=== PATIENT | male | born 1930 | race Caucasian/White ===

== ENCOUNTER 2019-02-20 11:02 | Observation (INO) | payer MEDICARE ==
[2019-02-17 12:15] LABS: BASOPHILS % (AUTO) 0.3 % (0-1); EOSINOPHILS # (AUTO) 0.1 X10'3 (0-0.9); EOSINOPHILS % (AUTO) 1.8 % (0-6); LYMPHOCYTES # (AUTO) 1.6 X10'3 (1.1-4.8); LYMPHOCYTES % (AUTO) 25.8 % (21-51); MEAN CORPUSCULAR HEMOGLOBIN 32.1 PG (27.0-31.0); MEAN CORPUSCULAR HGB CONC 33.3 g/dL (33.0-36.5); MEAN CORPUSCULAR VOLUME 96.6 FL (78-98); MEAN PLATELET VOLUME 9.6 FL (7.4-10.4); MONOCYTES # (AUTO) 0.6 X10'3 (0-0.9); MONOCYTES % (AUTO) 10.1 % (2-12); NEUTROPHILS # (AUTO) 3.8 X10'3 (1.8-7.7); PRE OP HEMATOCRIT 45.6 % (42.0-52.0); PRE OP HEMOGLOBIN 15.2 g/dL (14.0-17.9); PRE OP PLATELET COUNT 160 X10'3 (140-440); RED BLOOD COUNT 4.72 X10'6 (4.70-6.10); RED CELL DISTRIBUTION WIDTH 13.8 % (11.5-14.5)
[2019-02-17 12:23] LABS: ALBUMIN 3.7 G/DL (3.4-5.0); ALBUMIN/GLOBULIN RATIO 0.8 (1.1-1.5); ALKALINE PHOSPHATASE 99 IU/L (46-116); BLOOD UREA NITROGEN 27 MG/DL (7-18); BUN/CREATININE RATIO 18.6 (5.4-32.0); CALCIUM 8.9 MG/DL (8.5-10.1); CHLORIDE 105 MMOL/L (99-107); CREATININE 1.45 MG/DL (0.60-1.10); PRE OP ALT 18 U/L (30-65); PRE OP ANION GAP 9 (8-16); PRE OP AST 23 U/L (10-37); PRE OP BILIRUB, TOTAL 0.8 MG/DL (0.0-1.0); PRE OP GLUCOSE 84 MG/DL (70-104); PRE OP POTASSIUM 4.4 MMOL/L (3.4-5.1); PRE OP SODIUM 141 MMOL/L (135-145); TOTAL CARBON DIOXIDE 26.7 MMOL/L (24-32); TOTAL PROTEIN 8.2 G/DL (6.4-8.2); eGFR 46 ML/MIN
[2019-02-17 12:27] LABS: PRE OP INR 1.1 INR; PRE OP PROTIME 11.4 SECONDS (9.0-12.0)
[2019-02-20] VITALS (22 sets, daily range): BP systolic 100–190; BP diastolic 53–110
[~2019-02-20] VITALS: Ht 195.6 cm; Wt 108.0 kg
[~2019-02-20 11:02] MED LIST: APIX5TAB3 PO; BICA50TA7 PO; CHOL200074 PO; METO25TA6 PO; RANI300C PO; VITA1TAB20 PO
[2019-02-20] MEDS ORDERED: DOCUMENT DATE & TIME OF BETA-BLOCKER PO ONE (11:15)
[2019-02-20] MEDS ORDERED: ringers solution, lacted 1,000 ML IV SCH ×2 (11:15→16:06)
[2019-02-20] MEDS ORDERED: clindamycin-Cleocin 900mg/D5W 50 ML IV ONE (11:15)
[2019-02-20] MEDS ORDERED: famotidine 20mg tablet PO ONE (11:15)
[2019-02-20] MEDS ORDERED: MIDAZolam 5mg/5ml vial ONE (15:38)
[2019-02-20] MEDS ORDERED: fentaNYL/PF 50MCG/1 ML 2ML syringe ONE (15:38)
[2019-02-20] MEDS ORDERED: LIDOcaine 2% (20mg/ml) 5ml vial ONE (15:47)
[2019-02-20] MEDS ORDERED: propofol inj 20 ML IV ONE (15:47)
[2019-02-20] MEDS ORDERED: LIDOcaine 1% 30ml preserv. free vial ONE (15:52)
[2019-02-20] MEDS ORDERED: morphine 4 MG/ML inj SYRINge IV PRN ×2 (16:10)
[2019-02-20] MEDS ORDERED: ondansetron/PF 4mg/2ml inj IV PRN ×2 (16:10→16:55)
[2019-02-20] MEDS ORDERED: hydrALAZINE 20mg/ml inj. IV PRN (16:10)
[2019-02-20] MEDS ORDERED: enalaprilat dihydrate 2.5mg/2ml vial IV PRN (16:10)
[2019-02-20] MEDS ORDERED: fentaNYL/PF 50MCG/1 ML 2ML syringe IV PRN ×2 (16:10)
--- NOTE | 2019-02-20 16:45 | NUR ---
Received from OR via , accompanied by Anesthesiologist DR CERVANTES and report given by Anesthesiolgist. AWAKENS TO VOICE. VITALS STABLE. DRESSINGS DI. ROSA PAIN.
[2019-02-20] MEDS ORDERED: HYDROcodone/acetaminophen 10/325mg tab PO PRN (16:55)
--- NOTE | 2019-02-20 18:45 | NUR ---
Received from OR via , accompanied by Anesthesiologist DR CERVANTES and report given by Anesthesiolgist. AWAKE AND ORIENTED. VITALS STABLE. DRESSINGS DI. ROSA PAIN. TO SURGICAL RM 355B AT THIS TIME.
[2019-02-20] MEDS: clindamycin 600mg/D5W 50ml 50 ML IV SCH (20:58)
[2019-02-20] MEDS: potassium CL 20mEq in D5-1/2NS 1,000 ML IV SCH (22:21)
[2019-02-21] MEDS: potassium CL 20mEq in D5-1/2NS 1,000 ML IV SCH (00:51)
[2019-02-21] MEDS: clindamycin 600mg/D5W 50ml 50 ML IV SCH ×2 (02:12→08:29)
--- NOTE | 2019-02-21 04:43 | NUR ---
pt has pacemaker picture and paperwork at bedside.verbalizes understanding. Addendum: 02/21/19 at 0444 by Emmy Tomas RN Amended: Links added.
[2019-02-21 06:00] VITALS: BP 117/67
--- NOTE | 2019-02-21 06:26 | NUR ---
Problems reprioritized. Patient report given, questions answered & plan of care reviewed with LORIE Basilio. Addendum: 02/21/19 at 0658 by Emmy Tomas RN Amended: Links added.
--- NOTE | 2019-02-21 06:45 | NUR ---
Patient in room [facility]. I have received report from ARSALAN MELO and had the opportunity to ask questions and assume patient care.
--- NOTE | 2019-02-21 08:13 | NUR ---
PT IS NON COMPLIANT WITH WEARING HIS SLING. HE REFUSES TO NOT USE HIS ARM. HE IS AT BEDSIDE EATING AND WHEN I SUGGESTED HE PUT ON HIS SLING I WAS PICKING UP THE SLING TO HELP HIM HE BRUSHED ME AWAY AND STARTED GET ANGRY. HE QUICKLY APOLOGIZED BUT KEPT EATING AND IGNORED ME. CHARGE NOTIFIED. NOTE ON THE WHITEBOARD FOR DR WILCOX
[2019-02-21 11:00] VITALS: BP 111/57
== END 2019-02-21 13:38 | disposition home or self-care (01) ==
LOC: PAS 11:02 → SUR 3N 19:39
PROVIDERS: ADMIT Surgery; ATTEND Surgery
PROC: 02HK3JZ Insertion of Pacemaker Lead into Right Ventricle, Percutaneous Approach (ICD-10-PCS; 2019-02-20)
PROC: 0JH604Z Insertion of Pacemaker, Single Chamber into Chest Subcutaneous Tissue and Fascia, Open Approach (ICD-10-PCS; 2019-02-20)
PROC: 0JPT02Z Removal of Monitoring Device from Trunk Subcutaneous Tissue and Fascia, Open Approach (ICD-10-PCS; principal; 2019-02-20 15:36)
DX: I49.8 Other specified cardiac arrhythmias (principal); I49.5 Sick sinus syndrome; I48.2 Chronic atrial fibrillation; I10 Essential (primary) hypertension; R00.1 Bradycardia, unspecified; R06.02 Shortness of breath
CPT/HCPCS: 33207; 36415; 71045; 71046; 71048; 76000; 80053; 82948; 85025; 85610; 85730; 87081; 93005; 96365; 96366; 99284; C1786; G0378; J2001; J2250; J2704; J3010; J3480; J7120; A4215; A4565; A4618; A6258; A7000; J3490

== ENCOUNTER 2019-07-26 18:31 | Emergency (ER) | payer MEDICARE ==
[~2019-07-26] VITALS: Ht 195.6 cm; Wt 105.5 kg
[2019-07-26] MEDS ORDERED: LIDOcaine 1% W/epiNEPHrine 1:200,000 10ml vial IJ ONE (20:35)
[2019-07-26 21:40] VITALS: BP 140/71
== END 2019-07-26 21:41 | disposition home or self-care (01) ==
LOC: ER 18:31
DX: S81.812A Laceration without foreign body, left lower leg, initial encounter (principal); I48.91 Unspecified atrial fibrillation; I10 Essential (primary) hypertension; Z86.73 Personal history of transient ischemic attack (TIA), and cerebral infarction without residual deficits; Z90.49 Acquired absence of other specified parts of digestive tract; Z95.0 Presence of cardiac pacemaker; Z88.0 Allergy status to penicillin; Z79.899 Other long term (current) drug therapy; W25.XXXA Contact with sharp glass, initial encounter; Y93.89 Activity, other specified; Y92.89 Other specified places as the place of occurrence of the external cause; Y99.9 Unspecified external cause status
CPT/HCPCS: 12001; 99284